=== PATIENT | female | born 1995 | race African-American/Black ===

== ENCOUNTER 2016-08-25 19:13 | Emergency (ER) | payer OTHER ==
[~2016-08-25] VITALS: Ht 154.9 cm; Wt 61.5 kg
[2016-08-25 19:23] VITALS: TEMP 36.9; Ht 154.9 cm; Wt 61.5 kg
[2016-08-25] MEDS ORDERED: NORE1DIS7 TOP (20:26)
--- NOTE | 2016-08-25 20:34 | EMERGENCY ROOM VISIT NOTE ---
History First contact with patient: 19:23 Chief Complaint: MENTAL HEALTH EVALUATION Stated Complaint: BEHAVIOR HEALTH History of Present Illness The patient is a 21 year old female who presents to the Emergency Room being sent here by [facility] with complaints of having difficulty concentrating for almost 4 years. The patient states that ever since she started college at [employer] almost 4 years ago she has had difficulty staying focused when she tries to study. The patient states that when she was in high school she got good grades but did not have to study in order to get the good grades. When she came to college. The bacterial was more in depth and found out that she needed to study more in order to get good grades. The patient states that she tries really hard to study and wants to do better but she continues to procrastinate to start to study him when she is studying her mind wanders and she does not remember what she studies. She states she is having difficulty retaining information. She states she has similar problems when she is watching a movie. Afterwords her and her friends will be talking about the movie and she will have missed a lot of the details that they are talking about after the movie is over. The patient denies any suicidal homicidal ideations. The patient denies any headache, visual changes or dizziness. The patient states that she is able to otherwise functioning normally. She holds a part- time job which she works one evening through the week and then usually works the weekend. She has other friends in her same [facility] that do the same thing and are getting much greater grades than herself. The patient states that she drinks one large coffee per day but denies using any energy drinks. The patient denies any illicit drug use. The patient also admits that in April 2015 a friend was tragically murdered which might have made her symptoms worse but she does admit she had the symptoms prior to this tragedy. The patient states that she eats okay. She sleeps approximately 6-8 hours per night. She denies any other medical problems. Review of Systems 10 system review was performed and was negative unless stated otherwise history of present illness. Past Medical/Surgical History No significant past medical history Social History Smoking Status: Never Smoker Alcohol Use: occasionally Marital Status: single Housing Status: lives with roommate Occupation Status: [employer] student Current/Historical Medications Scheduled Norelgestromin-Ethinyl Estradi (Xulane 150-35 Mcg/24Hr), 1 DOSE TOP WK Allergies Coded Allergies: No Known Allergies (Unverified , 08/25/16) Physical Exam Vital Signs Date Time Temp Pulse Resp B/P Pulse Ox O2 Delivery O2 Flow Rate FiO2 08/25/16 19:23 36.9 120 20 141/99 97 Room Air Physical Exam GENERAL: Well-developed well-nourished 21-year-old female appears in no acute distress. MENTAL Status: Alert and oriented 3. The patient is not tearful. She does not appear anxious. Her thought processes good. EYES: PERRLA. EOMs intact. EARS: Canals clear. TMs without fluid level noted. NECK: Supple, no lymphadenopathy noted. No carotid bruits noted. LUNGS: Clear auscultation without wheezes rales or rhonchi. CARDIAC: Regular rate and rhythm without murmur. Pulses is full and equal throughout. ABDOMEN: Positive bowel sounds all 4 quadrants. Soft, nontender to palpation without organomegaly or masses. NEURO:Cranial nerves two through 12 intact. Cerebellar function intact with [id number]. Fine motor intact with alternating finger motions. MUSCULOSKELETAL: Full range of motion bilateral upper and lower extremities without difficulty. Muscle strength is 5 out of 5 bilateral upper and lower extremities and symmetrical. Medical Decision & Procedures ED Course The patient was evaluated. I discussed the patient's case with the psych nurse. She states that she will talk with the patient and give her information on CAPS. I said ever also recommend that she sees a medical doctor at [facility] for a possible trial of Adderall for possible ADD. The patient was discharged home in stable condition. Medical Decision Differential diagnosis include depression, attention deficit disorder, psychosis , behavioral disorder The patient did not have any physical complaints besides not being able to concentrate. I did not feel any diagnostic testing was necessary. Impression Primary Impression: Difficulty concentrating Departure Information Dispostion Home / Self-Care Condition GOOD Forms HOME CARE DOCUMENTATION FORM, IMPORTANT VISIT INFORMATION Patient Instructions My [facility] Additional Instructions Recommend follow-up with [facility] for evaluation for ADD and trial of medication. Also recommend following up with [facility] for other possible resources.
[2016-08-25 20:43] VITALS: BP 124/64; PULSE 74; O2SAT 98
== END 2016-08-25 20:44 | disposition home or self-care (01) ==
LOC: C.EDB 19:14 → C.EDA 20:44
DX: R41.840 Attention and concentration deficit (principal)